=== PATIENT | male | born 1975 | race Caucasian/White ===

== ENCOUNTER 2021-04-25 07:30 | Outpatient (CLI) | payer OTHER | END 2021-04-25 23:59 | disposition home or self-care (01) | LOC: LAB.R 07:30 | PROVIDERS: ATTEND Physician Assistant | DX: Z20.822 Contact with and (suspected) exposure to COVID-19 (principal) ==

== ENCOUNTER 2021-08-06 08:00 | Outpatient (CLI) | payer OTHER ==
--- NOTE | 2021-08-06 15:22 | XRAY Report ---
PROCEDURE: Foot 3 View LT INDICATIONS: CONTUSION OF LEFT FOOT TECHNIQUE: 3 views of the foot were acquired. COMPARISON: None FINDINGS: Bones: No fractures or dislocations. No suspicious bony lesions. Soft tissues: No tibiotalar joint effusion. Achilles tendon appears normal. IMPRESSION: No displaced fractures are seen on this plain film study. In this patient with a given history of trauma, please correlate with focal tenderness. If clinically appropriate, please consider a short-term follow-up plain films series versus a dedicated CT study. Reviewed by: Garland Garcia MD on 08/06/2021 2:21 PM [facility] Approved by: Garland Garcia MD on 08/06/2021 2:21 PM [facility] Station ID: [id number]
== END 2021-08-06 23:59 | disposition home or self-care (01) ==
LOC: DI.S 08:00
PROVIDERS: ATTEND Emergency Medicine
DX: S90.32XA Contusion of left foot, initial encounter (principal)